=== PATIENT | female | born 2000 | race African-American/Black ===

== ENCOUNTER 2024-03-11 08:04 | Emergency (ER) | payer SELFPAY ==
[2024-03-11 08:20] VITALS: BP 130/68; PULSE 79; RESP 18; TEMP 97.9; BMI 39.9
[2024-03-11] MEDS ORDERED: ONDANSETRON *ODT* 4 MG TABLET ONE (10:24)
[2024-03-11] MEDS: ONDANSETRON *ODT* 4 MG TABLET SL ONE (10:29)
== END 2024-03-11 13:56 | disposition home or self-care (01) ==
LOC: JER 08:04
DX: O9A.311 Physical abuse complicating pregnancy, first trimester (principal); S00.81XA Abrasion of other part of head, initial encounter; O26.891 Other specified pregnancy related conditions, first trimester; R10.13 Epigastric pain; Z3A.12 12 weeks gestation of pregnancy; Y04.8XXA Assault by other bodily force, initial encounter
CPT/HCPCS: 76815; 99284-25; Q0162

== ENCOUNTER 2024-04-05 09:34 | Emergency (ER) | payer SELFPAY ==
[2024-04-05 09:42] VITALS: TEMP 98.5; BMI 39.9
[2024-04-05 10:36] LABS: EPI CELLS 31 /uL (0-25.1); HYALINE CASTS 2 /uL (0-3.1); URINE APPEARANCE CLEAR; URINE BACTERIA 590 /uL (0-1359); URINE BILIRUBIN NEGATIVE (NEGATIVE); URINE COLOR YELLOW; URINE GLUCOSE (UA) NEGATIVE (NEGATIVE); URINE KETONE TRACE (NEGATIVE); URINE LEUK ESTERASE TRACE (NEGATIVE); URINE NITRITE NEGATIVE (NEGATIVE); URINE PROTEIN NEGATIVE (NEGATIVE); URINE RBC 42 /uL (0-23.9); URINE WBC 11 /uL (0-25.8)
[2024-04-05 10:46] LABS: BASO % 0.2 % (0-2.0); EOS % 0.5 % (0-4.5); HEMATOCRIT 31.8 % (32.4-45.2); HEMOGLOBIN 10.4 GM/dL (10.7-15.3); LYMPH % 14.7 % (8-40); MCH 25.3 pg (25.7-33.7); MCHC 32.7 g/dl (32.0-36.0); MEAN CELL VOLUME 77.4 fl (80-96); MEAN PLT VOLUME 8.9 fl (7.5-11.1); MONO % 7.1 % (3.8-10.2); NEUT % 77.5 % (42.8-82.8); PLATELET COUNT 256 10^3/uL (134-434); RBC 4.11 M/mm3 (3.60-5.2); RDW 17.8 % (11.6-15.6); WHITE BLOOD COUNT 7.1 K/mm3 (4.0-10.0)
[2024-04-05 10:53] LABS: INR 1.01 (0.83-1.09); PROTHROMBIN TIME (PATIENT) 11.4 SEC (9.7-13.0)
[2024-04-05 10:56] LABS: ACTIVATED PTT 32.7 SECONDS (25.2-36.5)
[2024-04-05 11:15] LABS: CALCIUM 8.6 mg/dL (8.5-10.1)
[2024-04-05 11:16] LABS: ALBUMIN 2.9 g/dl (3.4-5.0); BLOOD UREA NITROGEN 9.1 mg/dL (7-18)
[2024-04-05 11:19] LABS: CREATININE 0.6 mg/dL (0.55-1.3)
[2024-04-05 11:21] LABS: BILIRUBIN,TOTAL 0.2 mg/dL (0.2-1); TOT PROT 7.6 g/dl (6.4-8.2)
[2024-04-05] MEDS ORDERED: ACETAMINOPHEN INJECTION 100 ML IVPB ONE (11:47)
[2024-04-05] MEDS: ACETAMINOPHEN 1000 MG/100 ML BAG IVPB ONE (11:57)
[2024-04-05 12:19] VITALS: BP 124/73; PULSE 77; RESP 16
== END 2024-04-05 12:33 | disposition home or self-care (01) ==
LOC: JER 09:34
PROC: 3E033NZ Introduction of Analgesics, Hypnotics, Sedatives into Peripheral Vein, Percutaneous Approach (ICD-10-PCS; principal; 2024-04-05)
DX: O36.4XX0 Maternal care for intrauterine death, not applicable or unspecified (principal); Z3A.13 13 weeks gestation of pregnancy
CPT/HCPCS: 36415; 76815; 80053; 81003; 84702; 85025; 85610; 85730; 86850; 86900; 86901; 87086; 99284-25; J0131